=== PATIENT | female | born 1970 | race Caucasian/White ===

== ENCOUNTER → 2022-07-19 | Day surgery (SDC) | payer BC ==
[~2022-07-19] MED LIST: Dextrose 5%-0.45% NaCl 1,000 ML IV SCH; Midazolam 1 MG/ML 2 ML SDV IV ONE; Midazolam 1 MG/ML 2 ML SDV ONE; fentaNYL 100 MCG/2 ML SDV IV ONE; fentaNYL 100 MCG/2 ML SDV ONE
== END | disposition home or self-care (01) ==
LOC: DL.ENDO 06:41
PROVIDERS: ATTEND Internal Medicine Gastroenterology
DX: K22.89 Other specified disease of esophagus (principal); E66.09 Other obesity due to excess calories; Z88.2 Allergy status to sulfonamides; Z90.49 Acquired absence of other specified parts of digestive tract; Z90.710 Acquired absence of both cervix and uterus; Z68.32 Body mass index [BMI] 32.0-32.9, adult
CPT/HCPCS: 43239; 87077; J2250; J3010; J7042

== ENCOUNTER 2022-07-23 06:35 | Day surgery (SDC) | payer BC ==
[~2022-07-23 06:35] MED LIST changes: -Midazolam 1 MG/ML 2 ML SDV IV ONE; -Midazolam 1 MG/ML 2 ML SDV ONE; +Sodium Chloride 0.9% 10 ML Syringe FLUSH PRN; +Sodium Chloride 0.9% 10 ML Syringe FLUSH SCH; -fentaNYL 100 MCG/2 ML SDV IV ONE; -fentaNYL 100 MCG/2 ML SDV ONE
[2022-07-23] MEDS ORDERED: Midazolam 1 MG/ML 2 ML SDV IV ONE ×5 (06:36→08:07)
[2022-07-23] MEDS ORDERED: fentaNYL 100 MCG/2 ML SDV IV ONE ×3 (06:36→08:01)
[2022-07-23] MEDS ORDERED: Midazolam 1 MG/ML 2 ML SDV ONE (06:39)
[2022-07-23] MEDS ORDERED: fentaNYL 100 MCG/2 ML SDV ONE (06:39)
== END 2022-07-23 09:50 | disposition home or self-care (01) ==
LOC: DL.ENDO 06:35
PROVIDERS: ATTEND Internal Medicine Gastroenterology
DX: K57.30 Diverticulosis of large intestine without perforation or abscess without bleeding (principal); E66.09 Other obesity due to excess calories; K21.9 Gastro-esophageal reflux disease without esophagitis; Z90.49 Acquired absence of other specified parts of digestive tract; Z90.710 Acquired absence of both cervix and uterus; Z98.890 Other specified postprocedural states; Z88.2 Allergy status to sulfonamides; Z68.32 Body mass index [BMI] 32.0-32.9, adult
CPT/HCPCS: 45378; J2250; J3010; J7042